=== PATIENT | male | born 2000 | race Caucasian/White ===

== ENCOUNTER 2023-01-04 12:35 | Emergency (ER) | payer BC, MEDICAID ==
[~2023-01-04] VITALS: Ht 180.3 cm; Wt 72.7 kg
[2023-01-04 13:01] LABS: Basophils # (auto) 0 10 ^3/uL (0-0.2); Basophils % (auto) 0.6 % (0.0-2.0); Eosinophils # (auto) 0.1 10 ^3/uL (0-0.8); Eosinophils % (auto) 2.1 % (0.0-7.0); Hematocrit 47.1 % (41.0-53.0); Hemoglobin 15.2 g/dL (13.5-17.5); Lymphocytes # (auto) 1.8 10 ^3/uL (0.4-5.4); Lymphocytes % (auto) 31.7 % (10.0-50.0); Mean Corpuscular Hemoglobin 26.2 pg (28.0-32.0); Mean Corpuscular Hgb Conc. 32.3 g/dL (32.0-36.0); Mean Corpuscular Volume 80.9 fL (80.0-100.0); Monocytes # (auto) 0.5 10 ^3/uL (0-1.3); Monocytes % (auto) 8.2 % (0.0-12.0); Neutrophils # (auto) 3.2 10 ^3/uL (1.6-8.6); Neutrophils % (auto) 57.4 % (37.0-80.0); Red Blood Cells 5.82 10^6/uL (4.5-5.90); Red Cell Distribution Width 14.5 % (11.8-14.3); White Blood Cell 5.6 10^3/uL (4.4-10.8)
[2023-01-04] MEDS ORDERED: SODIUM CHLORIDE 0.9% 1,000 ML IV ONE (13:15)
[2023-01-04 13:18] LABS: Albumin 4.3 g/dL (3.4-5.0); Magnesium 2.5 mg/dL (1.6-2.6)
[2023-01-04 13:23] LABS: BUN/Creatinine Ratio 9.3 (10.0-20.0); Bilirubin, Total 0.9 mg/dL (0.2-1.0); Total Protein 7.4 g/dL (6.4-8.2)
[2023-01-04 15:42] VITALS: BP 117/71
== END 2023-01-04 16:22 | disposition home or self-care (01) ==
LOC: ER 12:35
DX: T67.5XXA Heat exhaustion, unspecified, initial encounter (principal); R42 Dizziness and giddiness; X58.XXXA Exposure to other specified factors, initial encounter; Y93.89 Activity, other specified; Y92.89 Other specified places as the place of occurrence of the external cause; Y99.8 Other external cause status
CPT/HCPCS: 36415; 70450; 71045; 80053; 83735; 84484; 85025; 93005; 96360; 99285; J7030